=== PATIENT | female | born 1985 | race Caucasian/White ===

== ENCOUNTER 2020-07-07 07:43 | Emergency (ER) | payer SELFPAY ==
[~2020-07-07] VITALS: Ht 149.9 cm; Wt 61.2 kg
[2020-07-07 07:49] VITALS: BP 131/84
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
--- NOTE | 2020-07-07 07:55 | NUR ---
Dr Hogan at [facility] examining pt
[2020-07-07 08:11] VITALS: BP 131/84
--- NOTE | 2020-07-07 08:11 | NUR ---
PATIENT BIB [facility] [facility]. PATIENT EXAMINED BY DR. KOROMA. PATIENT MEDICALLY CLEARED AND RELEASED IN CUSTODY IN STABLE CONDITION. ORIGINAL PRE-BOOK FORM AND COPY GIVEN TO OFFICER [place]. DISCHARGE INSTRUCTIONS PROVIDED TO OFFICER.
== END 2020-07-07 08:11 ==
LOC: MED 07:43
DX: M54.5 Low back pain (principal); M25.511 Pain in right shoulder; M79.7 Fibromyalgia; Z88.5 Allergy status to narcotic agent; Z79.899 Other long term (current) drug therapy; Z90.49 Acquired absence of other specified parts of digestive tract; Z02.89 Encounter for other administrative examinations
CPT/HCPCS: 99283